=== PATIENT | female | born 1990 | race Caucasian/White ===

== ENCOUNTER 2022-03-28 11:34 | Inpatient (IN) ==
[2022-03-28] MEDS ORDERED: Acetaminophen 325 MG TABLET PO PRN (11:41)
[2022-03-28] MEDS ORDERED: MOM Conc 10 ML UD.LIQ PO PRN (11:41)
[2022-03-28] MEDS ORDERED: Ibuprofen 400 MG TABLET PO PRN (11:41)
[2022-03-28] MEDS ORDERED: traZODone 50 MG TABLET PO PRN (11:41)
[2022-03-28] MEDS ORDERED: *HR* LORazepam 1 MG TABLET PO PRN (11:41)
[2022-03-28] MEDS ORDERED: *HR* LORazepam 2 MG/ML VIAL IM PRN (11:41)
[2022-03-28] MEDS ORDERED: Haloperidol Lactate 5 MG/ML VIAL IM PRN (11:41)
[2022-03-28] MEDS ORDERED: Mag Hydrox/Al Hydrox/Simeth 30 ML UDC PO PRN (11:41)
[2022-03-28] MEDS ORDERED: haloperidoL 5 MG TABLET PO PRN (11:41)
[2022-03-28] MEDS: hydrOXYzine pamoate 25 MG CAPSULE PO PRN ×2 (13:17→21:54)
[2022-03-28] MEDS: *HR* LORazepam 0.5 MG TABLET PO SCH ×2 (13:59→21:54)
[2022-03-28] MEDS: BuPROPion XL (24 HR) 150 MG TABLET PO SCH (14:36)
[2022-03-28] MEDS: Nicotine 2 MG GUM BC SCH ×2 (16:56→18:52)
[2022-03-28] MEDS ORDERED: Nicotine 2 MG GUM BC PRN (18:51)
[2022-03-28] MEDS ORDERED: lamoTRIgine 25 MG TABLET PO SCH (21:00)
[2022-03-28 21:18] VITALS: O2SAT 98
[2022-03-28] MEDS ORDERED: Melatonin 3 MG TABLET PO PRN (22:33)
[2022-03-29] MEDS ORDERED: *HR* Metformin 500 MG TABLET PO SCH (08:00)
[2022-03-29] MEDS: BuPROPion XL (24 HR) 150 MG TABLET PO SCH (08:38)
[2022-03-29] MEDS: *HR* LORazepam 0.5 MG TABLET PO SCH (08:38)
[2022-03-29 09:07] VITALS: BP 131/86; PULSE 102; TEMP 97.5
== END 2022-03-29 17:07 | disposition home or self-care (01) | DRG 753 ==
LOC: EDBD → 1ANU 11:34
PROVIDERS: ADMIT Psychiatry & Neurology Psychiatry; ATTEND Psychiatry & Neurology Psychiatry